=== PATIENT | female | born 1990 | race Hispanic/Latino ===

== ENCOUNTER 2020-12-28 08:08 | Day surgery (SDC) | payer OTHER ==
[2020-12-28] MEDS ORDERED: KETOROLAC 30 MG/ML INJ ONE ×2 (08:15→12:54)
[2020-12-28] MEDS ORDERED: MIDAZOLAM HCL 2 MG/2 ML INJ ONE ×2 (08:15→11:47)
[2020-12-28] MEDS ORDERED: FENTANYL CITR 100 MCG/2 ML ONE ×3 (08:15→12:53)
[2020-12-28] MEDS ORDERED: LIDOCAINE 1% MPF 5 ML VIAL ONE ×2 (08:15→11:47)
[2020-12-28] MEDS ORDERED: propofoL 200 MG/20 ML VIAL IV ONE ×2 (08:15→11:46)
[2020-12-28] MEDS ORDERED: dexAMETHasone 10 MG/ML VIAL ONE ×2 (08:15→12:53)
[2020-12-28] MEDS ORDERED: ROCURONIUM 50 MG/5 ML VIAL IV ONE ×2 (08:16→11:46)
[2020-12-28] MEDS ORDERED: ONDANSETRON 4 MG/2 ML VIAL ONE ×2 (08:16→12:54)
[2020-12-28 08:17] LABS: Absolute Lymphocytes (CBC) 2.8 K/uL (0.7-4.9); Basophils % 0.7 % (0-1.3); Hematocrit 40.9 % (36.0-45.0); Lymphocytes % 29.8 % (15.3-44.8); RBC Red Blood Cell Count 4.76 M/uL (3.86-4.86)
[2020-12-28 08:43] LABS: ALT/SGPT 25 U/L (12-78); AST/SGOT 13 U/L (15-37); Albumin 3.4 g/dL (3.4-5.0); Alkaline Phosphatase 93 U/L (45-117); Amylase 39 U/L (25-115); BUN Blood Urea Nitrogen 12 mg/dL (7-18); Bicarbonate 26 mmol/L (21-32); Bilirubin Direct 0.1 mg/dL (0-0.2); Bilirubin Total 0.3 mg/dL (0.2-1.0); Glucose Level 103 mg/dL (74-106); Lipase 80 U/L (73-393); Potassium 4.3 mmol/L (3.5-5.1); Protein, Total 8.2 g/dL (6.4-8.2); Sodium Level 139 mmol/L (136-145)
[2020-12-28] MEDS ORDERED: Ringers Lactate 1,000 ML IV ONE ×2 (09:23→13:39)
[2020-12-28] MEDS ORDERED: CEFOXITIN/SWI 1gm 1 GM/10 ML SYR ONE (11:25)
--- NOTE | 2020-12-28 12:55 | P.BOP ---
Preoperative diagnosis: symptomatic cholelithiasis Postoperative diagnosis: same Primary procedure: Laparoscopic cholecystectomy Security Systems Integrator: Marietta Conway ([place]) Estimated blood loss: <10cc Specimen: gb Findings: as above Anesthesia: General Complications: None Transferred to: Recovery Room Condition: Good
[2020-12-28] MEDS ORDERED: GLYCOPYRROLATE 0.2 MG/ML SYR ONE (13:13)
[2020-12-28] MEDS ORDERED: NEOSTIGMINE 1 MG/ML -5 ML ONE (13:13)
[2020-12-28] MEDS ORDERED: CODEINE 30MG/APAP 300MG TAB ONE (14:22)
[2020-12-28 14:39] VITALS: BP 126/68; TEMP 97.2; O2SAT 99
--- NOTE | 2021-01-04 08:45 | OP ---
Date of Procedure: 01/03/2021 Surgeon: Edwin Lin MD E D Tech: SURESH Gautam. Preoperative Diagnosis: Symptomatic cholelithiasis. Postoperative Diagnosis: Symptomatic cholelithiasis. Procedure: Laparoscopic cholecystectomy. Estimated Blood Loss: Less than 10 mL. Specimen: Gallbladder. Anesthesia: General plus local. Indication: This is the case of a female, who comes to us with above diagnosis. Fully explained the benefits, alternatives, and risks of laparoscopic possible open cholecystectomy, which include, but not limited to infection, bleeding, damage to adjacent structures, anesthesia complication, choledoch olithiasis, bile leak, pancreatitis, ND, and even . She also understands this may not relieve a ny symptoms. She might need more than one surgical intervention. She understood, signed a consent. Procedure In Detail: The patient was brought to the operating room, placed in supine position. Anes thesia was done without complication. Abdominal area was prepped and draped in the usual sterile fas hion. Marcaine 0.5% was injected for local anesthetic followed by sharp incision of the skin in the periumbilical region. Incision was carried down to fascia, which was opened under direct vision. Pe ritoneum was encountered, opened under direct vision. Vicryl #1 placed inside the fascia. Gary tr ocar was carefully introduced. Pneumoperitoneum was obtained. I placed 3 more trocars, 5 mm each on e of them, 1 in epigastric area and 2 in the right upper quadrant using same technique under direct v isualization. After that, I proceeded to put a grasper in the fundus of the gallbladder and another grasper in the infundibulum retracting the gallbladder in the inferolateral fashion, exposing the tri angle of Calot and obtaining critical view. The cystic duct and cystic artery were clearly isolated, free circumferentially and a connection between those and the gallbladder were clearly identified. I proceeded to ligate those by using at least 3 clips proximal, 1 clip distal, ligation in middle. S nicole was done with the cystic artery. No bile leak, no bleeding. The gallbladder was removed from li jillian using Bovie cauterizer and removed from abdominal cavity using EndoCatch through the umbilical in cision. The area was inspected once again. No bile leak, no bleeding. At that moment, I proceeded to remove the trocars under direct vision. Deflated pneumoperitoneum, closed the fascia with #1 Vicr yl. Irrigated subcutaneous tissue, closed with 3-0 chromic and skin approximated. Sponge count and instrument counts correct. The patient tolerated the procedure well. The patient was sent to recove ry in stable condition. CESIA/JEREMIAH Voice ID: [id number] Report ID: [id number]
--- NOTE | 2021-01-04 08:46 | DS ---
Date of Discharge: 12/28/2020 Diagnosis: Symptomatic cholelithiasis. Procedure: Laparoscopic cholecystectomy. Disposition: Home. Activity: As tolerated. No heavy lifting. Plan: Follow up in my office in 1 week. Call for appointment at [phone]. Keep area dry for 48 leoncio rs, then may shower. Medications: See orders. CESIA/JEREMIAH Voice ID: [id number] Report ID: [id number]
== END 2020-12-28 14:27 | disposition home or self-care (01) ==
LOC: OR 08:08
PROVIDERS: ATTEND Surgery
PROC: 0FT44ZZ Resection of Gallbladder, Percutaneous Endoscopic Approach (ICD-10-PCS; principal; 2020-12-28 09:45)
DX: K80.20 Calculus of gallbladder without cholecystitis without obstruction (principal); K80.10 Calculus of gallbladder with chronic cholecystitis without obstruction; N20.0 Calculus of kidney; R10.11 Right upper quadrant pain; Z20.822 Contact with and (suspected) exposure to COVID-19
CPT/HCPCS: 85025; 80048; 36415; 82150; 84703; 80076; 88304; 83690; 47562; U0003; J2704 ×2; J2250 ×2; J3010 ×3; J1100 ×2; J2710; J7120 ×2; J2405 ×2